=== PATIENT | male | born 1970 | race Caucasian/White ===

== ENCOUNTER 2018-11-05 09:43 | Emergency (ER) | payer MEDICAID ==
[~2018-11-05] VITALS: Ht 172.7 cm; Wt 85.3 kg
[2018-11-05 10:07] VITALS: Ht 172.7 cm; Wt 85.3 kg
[2018-11-05 10:59] LABS: microscopic required? NO
[2018-11-05 11:18] LABS: CALCIUM 9.8 mg/dL (8.5-10.1); CARBON DIOXIDE 26.7 mmol/L (21-32); CHLORIDE SERUM 102 mmol/L (98-107); CREATININE SERUM 0.9 mg/dL (0.7-1.3); GFR1 > 60 mL/min; GLUCOSE SERUM 135 mg/dL (74-106); POTASSIUM SERUM 3.7 mmol/L (3.5-5.1); SODIUM SERUM 137 mmol/L (136-145)
[2018-11-05 11:25] LABS: ALKALINE PHOSPHATASE 61 U/L (46-116); ALT/SGPT 28 U/L (16-63); AST/SGOT 17 U/L (15-37); BILIRUBIN TOTAL 0.77 mg/dL (0.20-1.00); LIPASE 74 IU/L (73-393); TOTAL PROTEIN, SERUM 7.6 g/dL (6.4-8.2)
[2018-11-05 11:30] LABS: BASOPHIL % 0.5 % (0-2); PLATELET COUNT 218 x10^3mcL (130-400); RED CELL DISTRIBUTION WIDTH 13.2 % (11.5-14.5)
[2018-11-05 12:20] VITALS: BP 137/85
[2018-11-05 12:49] LABS: urine erythrocyte NEGATIVE (NEGATIVE)
== END 2018-11-05 12:20 | disposition home or self-care (01) ==
LOC: ED 09:43
PROVIDERS: Emergency Medicine
DX: R10.13 Epigastric pain (principal); Z87.442 Personal history of urinary calculi
CPT/HCPCS: 36415

== ENCOUNTER 2018-12-30 09:49 | Emergency (ER) | payer MEDICAID ==
[~2018-12-30] VITALS: Ht 170.2 cm; Wt 82.7 kg
[2018-12-30 09:54] VITALS: Ht 170.2 cm; Wt 82.7 kg
[2018-12-30 10:35] LABS: UA SPECIFIC GRAVITY 1.025 (1.005-1.035); microscopic required? YES; urine erythrocyte TRACE (NEGATIVE)
[2018-12-30 11:15] LABS: BASOPHIL % 0.7 % (0-2); PLATELET COUNT 193 x10^3mcL (130-400); RED CELL DISTRIBUTION WIDTH 13.1 % (11.5-14.5)
[2018-12-30 11:29] LABS: CALCIUM 9.4 mg/dL (8.5-10.1); CHLORIDE SERUM 106 mmol/L (98-107); CREATININE SERUM 0.9 mg/dL (0.7-1.3); GFR1 > 60 mL/min; GLUCOSE SERUM 103 mg/dL (74-106); POTASSIUM SERUM 4.6 mmol/L (3.5-5.1); SODIUM SERUM 142 mmol/L (136-145)
[2018-12-30 11:34] LABS: ALKALINE PHOSPHATASE 64 U/L (46-116); ALT/SGPT 22 U/L (16-63); AST/SGOT 8 U/L (15-37); BILIRUBIN TOTAL 0.44 mg/dL (0.20-1.00); TOTAL PROTEIN, SERUM 7.8 g/dL (6.4-8.2)
[2018-12-30 12:37] VITALS: BP 135/85
== END 2018-12-30 12:37 | disposition home or self-care (01) ==
LOC: ED 09:49
PROVIDERS: Specialist
DX: R36.1 Hematospermia (principal); N50.811 Right testicular pain; N50.812 Left testicular pain; Z87.442 Personal history of urinary calculi
CPT/HCPCS: 36415; 87491; 87591

== ENCOUNTER 2019-03-29 07:49 | Emergency (ER) | payer MEDICAID ==
[~2019-03-29] VITALS: Ht 170.2 cm; Wt 84.4 kg
[2019-03-29 07:52] VITALS: Ht 170.2 cm; Wt 84.4 kg
[2019-03-29 08:54] LABS: microscopic required? NO
[2019-03-29 09:06] LABS: PLATELET COUNT 203 x10^3mcL (130-400); RED CELL DISTRIBUTION WIDTH 13.2 % (11.5-14.5)
[2019-03-29 09:14] LABS: CALCIUM 8.1 mg/dL (8.5-10.1); CARBON DIOXIDE 30.3 mmol/L (21-32); CHLORIDE SERUM 105 mmol/L (98-107); CREATININE SERUM 0.9 mg/dL (0.7-1.3); GFR1 > 60 mL/min; GLUCOSE SERUM 100 mg/dL (74-106); POTASSIUM SERUM 3.7 mmol/L (3.5-5.1); SODIUM SERUM 140 mmol/L (136-145)
[2019-03-29 09:16] LABS: UA SPECIFIC GRAVITY 1.015 (1.005-1.035); urine erythrocyte NEGATIVE (NEGATIVE)
[2019-03-29 09:19] LABS: ALKALINE PHOSPHATASE 65 U/L (46-116); ALT/SGPT 24 U/L (16-63); AST/SGOT 17 U/L (15-37); BILIRUBIN TOTAL 0.3 mg/dL (0.20-1.00); LIPASE 127 IU/L (73-393); TOTAL PROTEIN, SERUM 7.7 g/dL (6.4-8.2)
[2019-03-29 11:37] VITALS: BP 126/79
== END 2019-03-29 11:37 | disposition home or self-care (01) ==
LOC: ED 07:49
PROVIDERS: Emergency Medicine
DX: R10.13 Epigastric pain (principal); R22.2 Localized swelling, mass and lump, trunk
CPT/HCPCS: J1885; J7030; Q9967